=== PATIENT | female | born 1945 | race Two or more races ===

== ENCOUNTER 2022-09-12 06:35 | Inpatient (IN) | payer MEDICARE, MEDICAID ==
[~2022-09-12] VITALS: Ht 167.6 cm; Wt 103.9 kg
[2022-09-12] MEDS ORDERED: VANCOMYCIN 1G PREMIX 200 ML IV SCH (07:45)
[2022-09-12 08:32] LABS: CHLORIDE 111 mEq/L (98-107)
[2022-09-12 08:33] LABS: BASOPHILS % 0.4 % (0.0-2.0); EOSINOPHILS % 1.9 % (0.0-5.0); HEMATOCRIT. 33.1 % (36.0-48.0); HEMOGLOBIN. 11.1 g/dL (12.0-16.0); LYMPHOCYTES % 19.8 % (20.0-50.0); MEAN CORPUSCULAR HEMOGLOBIN 29.9 pg (28.0-32.0); MEAN CORPUSCULAR VOLUME 89.6 fL (81.0-99.0); MONOCYTES % 6.8 % (2.0-8.0); NEUTROPHILS % 71.1 % (40.0-76.0); PLATELET 332 x1000/uL (130-400)
[2022-09-12 08:49] LABS: PROTHROMBIN TIME 10.5 sec (9.6-11.0)
[2022-09-12 09:02] LABS: CLARITY URINE CLOUDY (CLEAR); COLOR URINE YELLOW (YELLOW); KETONES URINE NEGATIVE (NEGATIVE); LEUKOCYTE ESTERASE URINE NEGATIVE (NEGATIVE); NITRITE URINE NEGATIVE (NEGATIVE); OCCULT BLOOD URINE 3+ (NEGATIVE); PROTEIN URINE NEGATIVE (NEGATIVE); SPECIFIC GRAVITY URINE 1.009 (1.005-1.030); UROBILINOGEN URINE 0.2 E.U./dL (0.2-1.0)
[2022-09-12] MEDS ORDERED: LORAZEPAM 0.5MG TABLET PO PRN (13:15)
[2022-09-12] MEDS ORDERED: DOCUSATE SODIUM 100MG CAPSULE PO PRN (13:15)
[2022-09-12] MEDS ORDERED: HYDROCODONE/ACETAMINOPHEN 5/325MG TABLET PO PRN (13:15)
[2022-09-12] MEDS ORDERED: ACETAMINOPHEN 325MG TABLET PO PRN ×2 (13:15)
[2022-09-12] MEDS ORDERED: IPRATROPIUM/ALBUTEROL 0.5-3(2.5)MG/3ML NEB HHN PRN (13:15)
[2022-09-12] MEDS ORDERED: ONDANSETRON HCL 4MG/2ML INJ IV PRN (13:15)
[2022-09-12] MEDS ORDERED: PIPERACILLIN/TAZ 3.375G PREMIX 50 ML IV SCH (13:30)
[2022-09-12] MEDS ORDERED: NALOXONE HCL 0.4MG/ML VIAL IV PRN (13:30)
[2022-09-12] MEDS ORDERED: VANCOMYCIN 750MG PREMIX 150 ML IV NR (15:00)
[2022-09-12 20:00] VITALS: BP 128/61; PULSE 94; RESP 17; TEMP 94.7
[2022-09-12] MEDS ORDERED: CEFEPIME 2,000 MG in DEXT 5% WATER 100 ML IV SCH ×2 (20:00→22:30)
[2022-09-12 21:30] VITALS: BP 128/75; PULSE 94; RESP 17; TEMP 94.7
[2022-09-13] VITALS: BP 110/49; PULSE 84; RESP 16; TEMP 95.8
[2022-09-13] MEDS ORDERED: METF-873 MT (02:10)
[2022-09-13] MEDS ORDERED: LISI-186 MT (02:10)
[2022-09-13 04:00] VITALS: BP 107/48; PULSE 86; RESP 16; TEMP 95.6
[2022-09-13] MEDS ORDERED: PIPERACILLIN/TAZOBACTAM 3.375 G in DEXTROSE 5% WATER 50 ML IV SCH (06:00)
[2022-09-13] MEDS ORDERED: DEXTROSE 50% WATER 50ML SYRINGE IV PRN (07:45)
[2022-09-13] MEDS: INSULIN LISPRO 100 UNITS/ML SUBCUT SCH ×4 (07:50→20:11)
[2022-09-13 08:00] VITALS: BP 134/55; PULSE 78; RESP 19; TEMP 97.7
[2022-09-13] MEDS: VANCOMYCIN 1G PREMIX 200 ML IV SCH (09:12)
[2022-09-13] MEDS: CEFEPIME 2,000 MG in DEXT 5% WATER 100 ML IV SCH ×2 (11:11→20:11)
[2022-09-13 12:00] VITALS: BP 129/53; PULSE 79; RESP 21; TEMP 97.7
[2022-09-13] MEDS: BLOOD SUGAR DIAGNOSTIC STRIP TEST SCH ×3 (12:20→20:11)
[2022-09-13 16:00] VITALS: BP 141/61; PULSE 80; RESP 23; TEMP 96.4
[2022-09-13] MEDS: ENOXAPARIN 30MG/0.3ML SYR SUBCUT SCH (17:52)
[2022-09-13 20:00] VITALS: BP 113/50; PULSE 79; RESP 18; TEMP 97.5
[2022-09-14] VITALS (7 sets, daily range): BP systolic 119–147; BP diastolic 50–72; PULSE 74–93; RESP 18–20; TEMP 97.7–98.3; O2SAT 98
[2022-09-14] MEDS: BLOOD SUGAR DIAGNOSTIC STRIP TEST SCH ×4 (06:31→21:38)
[2022-09-14] MEDS: ENOXAPARIN 30MG/0.3ML SYR SUBCUT SCH ×2 (06:38→18:04)
[2022-09-14 07:13] LABS: BASOPHILS % 0.5 % (0.0-2.0); EOSINOPHILS % 2.4 % (0.0-5.0); HEMOGLOBIN. 11.3 g/dL (12.0-16.0); LYMPHOCYTES % 25.2 % (20.0-50.0); MEAN CORPUSCULAR HEMOGLOBIN 30.2 pg (28.0-32.0); MEAN CORPUSCULAR VOLUME 88.2 fL (81.0-99.0); MEAN PLATELET VOLUME 8.3 fl (7.4-10.4); MONOCYTES % 10.3 % (2.0-8.0); NEUTROPHILS % 61.6 % (40.0-76.0); PLATELET 323 x1000/uL (130-400); RED BLOOD CELL COUNT 3.74 mill/uL (4.2-5.4); RED CELL DISTRIBUTION WIDTH 14.7 % (11.6-14.6)
[2022-09-14] MEDS: INSULIN LISPRO 100 UNITS/ML SUBCUT SCH ×4 (07:50→21:00)
[2022-09-14] MEDS: CEFEPIME 2,000 MG in DEXT 5% WATER 100 ML IV SCH ×2 (08:53→21:38)
[2022-09-14] MEDS: VANCOMYCIN 1G PREMIX 200 ML IV SCH (09:00)
[2022-09-14 13:49] LABS: CHLORIDE 108 mEq/L (98-107)
[2022-09-14] MEDS ORDERED: MELO-104 MT (14:15)
[2022-09-14] MEDS ORDERED: TOPUD MT (14:19)
[2022-09-14] MEDS ORDERED: LEVO25TA7 MT (14:19)
[2022-09-14] MEDS ORDERED: MONT4GRA2 MT (14:19)
== END 2022-09-14 22:45 | DRG 854 ==
LOC: ER 06:35 → EDBEDREQ 10:34 → 6EST 20:00
PROVIDERS: ADMIT Family Medicine Adult Medicine; ATTEND Family Medicine Adult Medicine
PROC: 0KBP0ZZ Excision of Left Hip Muscle, Open Approach (ICD-10-PCS; principal; 2022-09-14)
DX: A41.9 Sepsis, unspecified organism (principal); L02.31 Cutaneous abscess of buttock; L03.317 Cellulitis of buttock; E66.01 Morbid (severe) obesity due to excess calories; Z68.37 Body mass index [BMI] 37.0-37.9, adult; E11.9 Type 2 diabetes mellitus without complications; I10 Essential (primary) hypertension; M13.0 Polyarthritis, unspecified
CPT/HCPCS: 36415; 71045; 80048; 80053; 80202; 81003; 82040; 82962; 83036; 83605; 84134; 84145; 84484; 85025; 93005; 97162; 97166; 97530; 99285; J0692; J1650; J1815; J2543; J3370; J7060